=== PATIENT | female | born 1995 | race Caucasian/White ===

== ENCOUNTER 2024-07-06 10:26 | Emergency (ER) | payer BC, OTHER ==
[2024-07-06 11:01] VITALS: BP 138/98; PULSE 61; RESP 20; TEMP 98.1; BMI 33.2
[2024-07-06 11:50] LABS: EPI CELLS 29 /uL (0-25.1); HYALINE CASTS 0 /uL (0-3.1); URINE APPEARANCE CLEAR; URINE BACTERIA 252 /uL (0-1359); URINE BILIRUBIN NEGATIVE (NEGATIVE); URINE COLOR YELLOW; URINE GLUCOSE (UA) NEGATIVE (NEGATIVE); URINE KETONE NEGATIVE (NEGATIVE); URINE LEUK ESTERASE NEGATIVE (NEGATIVE); URINE NITRITE NEGATIVE (NEGATIVE); URINE PROTEIN NEGATIVE (NEGATIVE); URINE RBC 348 /uL (0-23.9); URINE WBC 27 /uL (0-25.8)
== END 2024-07-06 12:22 | disposition home or self-care (01) ==
LOC: JER 10:26
DX: R31.21 Asymptomatic microscopic hematuria (principal)
CPT/HCPCS: 81003; 87086; 99283-25